=== PATIENT | female | born 1950 | race Caucasian/White ===

== ENCOUNTER 2021-09-13 17:51 | Emergency (ER) | payer MEDICARE, OTHER ==
[2021-09-13 19:30] LABS: HEMOGLOBIN 14.4 gm/dl (12.3-15.3); RED BLOOD COUNT 4.53 M/UL (4.00-5.10); WHITE BLOOD COUNT 12.6 K/UL (4.5-11.0)
[2021-09-13 19:54] LABS: BUN/CREATININE RATIO 14 (0-10)
[2021-09-13] MEDS ORDERED: PHENERGAN 25 MG25 M1 PO (22:38)
== END 2021-09-13 23:00 | disposition home or self-care (01) ==
LOC: ER1 17:51
PROVIDERS: Family Medicine
DX: R11.2 Nausea with vomiting, unspecified (principal)
CPT/HCPCS: 80053; 81001; 83605; 83690; 85025; 96374; 96375; 99284; J2405; J2550; J7030

== ENCOUNTER 2022-06-05 11:52 | Emergency (ER) | payer MEDICARE ==
[~2022-06-05 11:52] MED LIST: PHENERGAN 25 MG25 M1 PO
[2022-06-05 13:01] LABS: HEMOGLOBIN 14.3 gm/dl (12.3-15.3); RED BLOOD COUNT 4.6 M/UL (4.00-5.10); WHITE BLOOD COUNT 7.5 K/UL (4.5-11.0)
[2022-06-05 15:48] LABS: BUN/CREATININE RATIO 11 (0-10)
[2022-06-05] MEDS ORDERED: PHENERGAN 25 MG25 M1 PO (20:30)
[2022-06-05] MEDS ORDERED: FLOMAX 0.4 MG0.4 MG PO (20:30)
[2022-06-05] MEDS ORDERED: COLACE 100MG C100 MG PO (20:30)
[2022-06-05] MEDS ORDERED: HYDROCODON-ACE1 EAC4 PO (20:48)
== END 2022-06-05 21:30 | disposition home or self-care (01) ==
LOC: ER1 11:52
PROVIDERS: Physician Assistant
DX: N13.2 Hydronephrosis with renal and ureteral calculous obstruction (principal); K59.00 Constipation, unspecified; K21.9 Gastro-esophageal reflux disease without esophagitis; E78.5 Hyperlipidemia, unspecified; I10 Essential (primary) hypertension; J44.9 Chronic obstructive pulmonary disease, unspecified; Z90.81 Acquired absence of spleen; Z87.891 Personal history of nicotine dependence
CPT/HCPCS: 80053; 83690; 85025; 96374; 96375; 99284; J1200; J1885; J2930; Q9967